=== PATIENT | male | born 1990 ===

== ENCOUNTER 2019-06-06 14:30 | Emergency (ER) | payer BC, OTHER ==
[2019-06-06 16:20] VITALS: BP 114/83
--- NOTE | 2019-06-06 17:45 | UC ---
Hand/Wrist HPI - HPI Summary HPI Summary: 28-year-old male presents with persistent pain to his right hand after punching a wall 6 days ago. States he feels discomfort over the proximal knuckle of the fourth finger of his right hand especially with movement. States he has full range of motion. Has been taking ibuprofen and icing the hand with good relief in pain. Denies any numbness or tingling. - History Of Current Complaint Chief Complaint: UCUpperExtremity Stated Complaint: RIGHT HAND PAIN Time Seen by Provider: 06/06/19 16:46 Hx Obtained From: Patient Pain Intensity: 3 - Allergies/Home Medications Allergies/Adverse Reactions: Allergies Allergy/AdvReac Type Severity Reaction Status Date / Time No Known Allergies Allergy Verified 06/06/19 16:20 Home Medications: Home Medications Escitalopram Oxalate [Lexapro 10 mg] 10 mg PO DAILY 06/06/19 [History Confirmed 06/06/19] PMH/Surg Hx/FS Hx/Imm Hx Previously Healthy: Yes Psychological History: Depression - Surgical History Surgical History: Yes Surgery Procedure, Year, and Place: appendectomy age 10 - Family History Known Family History: Positive: Non-Contributory - Social History Lives: With Family Alcohol Use: Daily Alcohol Amount: 3 Substance Use Type: None Smoking Status (MU): Never Smoked Tobacco Review of Systems All Other Systems Reviewed And Are Negative: Yes Constitutional: Positive: Negative Skin: Positive: Other - abrasions Respiratory: Positive: Negative Cardiovascular: Positive: Negative Gastrointestinal: Positive: Negative Genitourinary: Positive: Negative Motor: Negative: Weakness Neurovascular: Negative: Decreased Sensation Musculoskeletal: Positive: Other: - See HPI. Negative: Decreased ROM Neurological: Positive: Negative Is Patient Immunocompromised?: No Physical Exam - Summary Physical Exam Summary: GENERAL APPEARANCE: Well developed, well nourished, alert and cooperative, and appears to be in no acute distress. CARDIAC: Normal S1 and S2. No S3, S4 or murmurs. Rhythm is regular. There is no peripheral edema, cyanosis or pallor. Extremities are warm and well perfused. Capillary refill is less than 2 seconds. Peripheral pulses intact. LUNGS: Clear to auscultation without rales, rhonchi, wheezing or diminished breath sounds. ABDOMEN: Positive bowel sounds. Soft, nondistended, nontender. No guarding or rebound. No masses or hepatosplenomegally. MUSKULOSKELETAL: Normal muscular development. Normal gait. EXTREMITIES: Tenderness over the 4th MCP of the right hand without gross deformity, ecchymosis, or edema. Superficial crusted abrasions noted to the dorsal index, middle, and ring fingers over the mid proximal phalanx. Full ROM to all fingers. Circulation and sensation intact. SKIN: Skin normal color, texture and turgor. Triage Information Reviewed: Yes Vital Signs: Initial Vital Signs Temp 98.2 F 06/06/19 16:15 Pulse 63 06/06/19 16:15 Resp 16 06/06/19 16:15 BP 114/83 06/06/19 16:15 Pulse Ox 99 06/06/19 16:15 Vital Signs Reviewed: Yes Diagnostics - Radiology No standard instances Radiology Interpretation Completed By: Radiologist Summary of Radiographic Findings: Order Information: HAND - RIGHT MINIMUM 3 VIEWS. Indication: Right hand pain. 3 views of the right hand demonstrates no fracture. No other bone or joint abnormality is identified. IMPRESSION: No fracture of the right hand is noted. Hand/Wrist Course/Dx - Course Course Of Treatment: 28-year-old male presents with persistent pain to his right hand after punching a wall 6 days ago. States he feels discomfort over the proximal knuckle of the fourth finger of his right hand especially with movement. States he has full range of motion. Has been taking ibuprofen and icing the hand with good relief in pain. Denies any numbness or tingling. Afebrile. Vital signs stable. Patient's exam was significant for tenderness over the 4th MCP of the right hand without gross deformity, ecchymosis, or edema. Superficial crusted abrasions noted to the dorsal index, middle, and ring fingers over the mid proximal phalanx. Full ROM to all fingers. Circulation and sensation intact. Exam was unremarkable. X-ray showed no acute fracture or dislocation. Reviewed results with the patient. Recommending continued conservative treatment for a right hand injury including [id number] analgesics and RACE. He is to follow-up with orthopedic surgery in 5-7 days if symptoms are not improving. And respiratory guidance and warning symptoms were reviewed with the patient. Verbalizes understanding and increased the plan of care. - Differential Dx/Diagnosis Differential Diagnosis/HQI/PQRI: Contusion, Dislocation, Fracture, Sprain Provider Diagnosis: Injury of right hand Discharge ED - Sign-Out/Discharge Documenting (check all that apply): Patient Departure All imaging exams completed and their final reports reviewed: Yes - Discharge Plan Condition: Stable Disposition: HOME Patient Education Materials: Hand Sprain (ED) Referrals: Inocente Bess MD [Primary Care Provider] - Patel Black MD [Medical Doctor] - 5 Days (If no improvement. Call for appointment.) Additional Instructions: The x-ray performed in the clinic today showed no evidence of a fracture. Rest the hand as much as possible. Apply ice to the affected area for 15-20 minutes at least 4 times a day to help with the pain and swelling. Elevate the hand to help reduce swelling. Take acetaminophen (Tylenol) or ibuprofen (Advil, Motrin) according to directions as needed for pain. Follow up with orthopedic surgery in 5-7 days if symptoms do not improve. Seek immediate medical attention if you have severe pain not managed with pain medication, have increased swelling, develop numbness or tingling in the hand or fingers, or have any worsening of symptoms. - Billing Disposition and Condition Condition: STABLE Disposition: Home
== END 2019-06-06 17:57 | disposition home or self-care (01) ==
LOC: UCEAST 14:30
DX: S69.91XA Unspecified injury of right wrist, hand and finger(s), initial encounter (principal); F32.9 Major depressive disorder, single episode, unspecified; Z79.899 Other long term (current) drug therapy; W22.01XA Walked into wall, initial encounter; Y92.9 Unspecified place or not applicable
CPT/HCPCS: 99201; G0463